=== PATIENT | female | born 1960 | race Caucasian/White ===

== ENCOUNTER → 2017-10-15 10:49 | Outpatient (CLI) | payer OTHER, SELFPAY ==
--- NOTE | 2017-10-15 | DI.MRI.S_ITS ---
PROCEDURE: MR ANKLE LT WO/W CON INDICATIONS: PAIN IN LEFT ANKLE TECHNIQUE: Noncontrast sagittal T1 spin echo and T2 fast spin echo with fat saturation, axial proton density fast spin echo and T2 fast spin echo with fat saturation, axial T1 spin echo with fat saturation, coronal T1 spin echo and T2 fast spin echo with fat saturation through the ankle/hindfoot. Post-contrast axial, coronal, and sagittal T1 spin echo with fat saturation through the ankle/hindfoot. COMPARISON: None. FINDINGS: Image quality: Excellent. Bones and joints: No suspicious osseous enhancement. No bone marrow contusions or fractures. No hindfoot coalitions. No osteochondral injuries of the talar dome. No pathologic joint effusions. Medial structures: The posterior tibialis, flexor digitorum longus, and flexor hallucis longus tendons are intact. Minimal fluid adjacent to the tibialis posterior and flexor digitorum longus tendons. The posterior tibial neurovascular bundle appears normal within the tarsal tunnel, without extrinsic mass effect. The deep layer (anterior and posterior tibiotalar ligaments) and superficial layer (tibionavicular, tibiospring, and tibiocalcaneal ligaments) of the deltoid ligament appear normal. The spring ligament components (superomedial calcaneonavicular, medioplantar oblique calcaneonavicular, and inferoplantar longitudinal ligaments) are intact. Lateral structures: The anterior talofibular ligament is not well-seen. This may be a chronic finding given the absence of adjacent marrow edema The calcaneofibular and posterior talofibular ligaments appear intact. More superiorly, the anterior and posterior tibiofibular ligaments appear intact, as is the intermalleolar ligament. The tibiofibular syndesmosis is normal in width at 2 mm or less. The peroneus longus and brevis tendons demonstrate diffuse longitudinal tears, tendinopathy and tenosynovitis. Adjacent bony peroneal tubercle and retrotrochlear prominence are normal in size. The sinus tarsi demonstrates normal fatty signal, without edema, fibrosis, or cyst formation. Visualized sinus tarsi components (cervical ligament, interosseous talocalcaneal ligament, roots of the inferior extensor retinaculum) appear normal. The calcaneonavicular and calcaneocuboid components of the bifurcate ligament appear intact. The dorsal calcaneocuboid ligament appears intact. Anterior structures: The tibialis anterior, extensor hallucis longus, and extensor digitorum longus tendons appear intact. The dorsal talonavicular ligament appears intact. Posterior and plantar structures: Achilles tendon is thickened approximately 5 cm above the calcaneal attachment although there is only minimal soft tissue edema. . Medial and lateral bands of the plantar fascia are of normal thickness. No abductor digiti quinti muscle atrophy to suggest Vo neuropathy. IMPRESSION: Severe diffuse peroneus brevis and longus longitudinal split tears, and associated tenosynovitis plus tendinopathy. Rupture of the anterior talofibular ligament although this could be a chronic finding. Please correlate clinically. Low-grade/chronic distal Achilles tendinopathy, centered approximately at 5 cm cephalad to the calcaneal attachment. Mild posterior tibialis and flexor digitorum longus tenosynovitis. Dictated by: Ernie Ruiz M.D. on 10/15/2017 at 15:55 Approved by: Ernie Ruiz M.D. on 10/15/2017 at 16:10
== END ==
PROVIDERS: PCP Physician Assistant; Visit Provider Physician Assistant
DX: S96.812A Strain of other specified muscles and tendons at ankle and foot level, left foot, initial encounter (principal); S93.492A Sprain of other ligament of left ankle, initial encounter; M65.872 Other synovitis and tenosynovitis, left ankle and foot; M25.572 Pain in left ankle and joints of left foot
CPT/HCPCS: 73723; A9579

== ENCOUNTER 2018-02-27 12:01 | Day surgery (SDC) | payer OTHER, SELFPAY ==
[2018-02-27] VITALS (8 sets, daily range): BP systolic 126–199; BP diastolic 69–90; PULSE 69–88; RESP 10–18; TEMP 36.2–37.3; O2SAT 90–97; BMI 34.8
[2018-02-27] MEDS: LACTATED RINGERS 1,000 ML 42 ML IV ×2 (13:11→15:43)
[2018-02-27] MEDS: MIDAZOLAM 2 MG/2 ML VIAL 1 MG IV ×2 (13:59→14:05)
[2018-02-27] MEDS: fentaNYL 100 MCG/2 ML INJ 50 MCG IV ×2 (14:00→14:05)
--- NOTE | 2018-02-27 14:07 | PM.PREOP ---
Pre-operative Note Interval Note Pre-op Check: Yes History & Physical Reviewed by Physician Changes: No
--- NOTE | 2018-02-27 14:08 | PM.OP.1 ---
Operative Date/Time/Diagnoses Date of procedure: 02/27/18 Time of procedure: 14:08 Pre-op diagnosis: Left lateral ankle instability and peroneal tendonitis Post-op diagnosis: same Procedure & Clinicians Procedure: Left lateral ankle stabilization (one ligament repair) with anchor system and peroneal tendon repair Same procedure as scheduled: Yes Indications: Painful chronic ankle instability with frequent sprains and suspected peroneal tendon tear. Conservative measures have failed to alleviate her pain and she wished to have surgical intervention this time. Surgeon: Ting Alvarez Click Yes if Unassisted: Yes Anesthesia Type: General and Peripheral nerve block Operative Notes Closure Type: primary Specimen(s): none sent Implants & Drains: Arthrex internal brace Tycron, Vicryl, nylon sutures Estimated Blood Loss (mL): 40 Blood products transfused: none Procedure in detail: After a lower extremity block was performed by Anesthesia in the preoperative holding area the patient was brought to the operating room. And transferred to the operating room table. After induction of general anesthesia, she was carefully positioned, well padded and appropriately aligned. The foot and ankle were prepped and draped in the usual aseptic manner. After a check of anesthesia an incision was made on the lateral aspect of the left ankle from posterior to the fibular malleolus in a hockey-stick fashion across the lateral anterior ankle. The incision was deepened through subcutaneous tissues being careful to identify and retract all vital neural and vascular structures. All bleeders were cauterized and ligated as necessary. The distal fibula was prepared and a very small remnant of the ATFL was noted. Further dissection was carried down to the talus and neck was noted and the lateral portion of the talus body as well was defined. After checking on C-arm and normal saline irrigation, a drill hole was made just distal and anterior to the articular surface of the talus laterally. Using the standard Arthrex internal brace technique, this was tapped and an anchor was placed securely. Next the peroneal tendons were observed just in the lateral gutter and shown to have significant changes with a synovitic sheath as well as each 1 having a few longitudinal tears in it. There were larger portions that suggested this was not the time to attempt sacrifice with tenodesis, so I used a curette and other sharp techniques of debridement and collected some of the fibers to allow for rib underlying and hopeful reestablishment of the linear nature of each of the tendons. This was done with Tycron. The sheath was repaired and attention was directed back to the fibula. A drill hole was placed after verifying on C-arm approximately 1.5 cm proximal to the distal tip and angulated appropriately. Unfortunately this on verification appeared to be just the exact length of the anchor and my concern was that this would not be long enough and the anchor could come out. So a different method was used in that I drilled from the most distal tip of the fibula slightly anterior to this tip, and the anchor was placed there. It was placed under tension and securely, having been threaded with the fiber tape from the prior anchor and following the line of the prior ATFL. It should be noted that there was less inversion on this security as well as after repair using the additional attachment of FiberWire in that anchor which a free needle was used to further secure the soft tissues to. Excess FiberWire and fiber tape were removed. The tourniquet was deflated and a prompt hyperemic response was seen to the foot and ankle. Vicryl was used to also reinforce the repair of the retinaculum to increase the lateral stability. Subcutaneous closure using Vicryl and skin closure using nylon. She was dressed with a lightly compressive sterile dressing and postoperative boot. Following the technique of the Arthrex SpeedBridge. Drill holes were placed proximally on the posterior aspect of the calcaneus medially and laterally. This was then tapped and each anchor was inserted. Once appropriately seated the FiberWire attached to the anchor was brought up through the Achilles tendon at the appropriate location. Next, distally on the calcaneus another set of 2 holes were drilled in the same manner and tapped. Following the speed bridge protocol, under appropriate tension threading each of the 2 sides of the more proximal anchors suture, this was then placed in each of the holes. Each of these 2 anchors were then seated appropriately and was under good tension. Excess fiber tape was trimmed. A free needle was used to take some of the included FiberWire suture on each side and reinforce the attachment. Care was taken to not make this a proud knot. 3-0 Vicryl was used to reinforce and repair the remainder of the Achilles tendon and range of motion was available and strong. The area was irrigated once more with normal sterile saline and the tourniquet was deflated. A prompt hyperemic response was seen to the foot and ankle. Tendon capsule was then repaired and subcutaneous closure was performed with Vicryl. Skin was closed with nylon and she was placed in a sterile lightly compressive dressing. She was then also placed in her postoperative boot. She was transferred to the PACU with vital signs stable and vascular status intact. Complications: none Condition: stable Disposition: PACU Plan for aftercare: Following a period of postoperative monitoring the patient be discharged home on written and oral postop instructions including keeping the dressing dry and intact, no ambulation to the foot times minimum 3 weeks, elevating the foot was seated home. DVT prevention techniques have been reviewed. She will start Lovenox tomorrow. Her 1st postoperative visit will be dressing change and at the 3rd week following surgery we will likely remove sutures and begin very limited weight-bearing with assistive device.
--- NOTE | 2018-02-27 14:24 | SUR.PREOP ---
Block start time [1359 ] . Monitoring initiated and maintained throughout procedure. Oxygen and medications given per anesthesiologist instructions. Patient remained stable throughout procedure, no adverse reactions noted. Block end time [1421 ].
[2018-02-27] MEDS: CEFAZOLIN 2 GM/100 ML FROZ.PIGGY IV (14:58)
--- NOTE | 2018-02-27 15:17 | SUR.OPER ---
Supine on padded OR bed, head on pillow, arms secured on padded arm boards at <90 degrees abduction, legs uncrossed, safety belt at thigh, tape over blanket over lower right leg and over blanket over thighs with gel bump under left thigh, left lower leg draped free.
--- NOTE | 2018-02-27 15:24 | PM.PROC.1 ---
Procedures Date/Time Date of procedure: 02/27/18 Time of procedure: 13:59 Nerve Block Time out performed: Yes Local anesthetic used: other (Ropivacaine 0.5% 17 ml and Lido 2% w epi 5 ml) Location of anesthetic used: left popliteal fossa Amount of anesthesia used (mL): 22 Nerve blocks: other (Left popliteal/Sciatic nerve Block for postop pain management) Procedure successful: Yes Patient tolerated procedure: well Complications: none Additional comments: Procedure: Left Popliteal/Sciatic Nerve block for postop pain relief. Consent obtained after explanation of procedure benefits and risks. Prone position with routine monitors. NC O2 in place. Ultrasound visualization plus nerve stimulator in place. IV sedation titrated: Versed 2mg and fentanyl 100mcg. Landmarks ID'd and nerve bundle vis with US. Lido 1% skin wheal with 25g needle. Nerve Stim needle 22g, 100mm used. Difficult to isolate nerve bundle beyond 4 cm above popliteal crease. Negative aspiration. Needle adjustment x4 for injection optimization. Procedure tolerated well.
[2018-02-27] MEDS: BUPIVACAINE 0.5% (PF) VIAL 30 ML INJ (15:26)
[2018-02-27] MEDS: BENZOCAINE/MENTHOL 1 LOZ PKT 1 EACH PO (17:41)
--- NOTE | 2018-02-27 17:45 | SUR.PHASEI ---
Dr. Alvarez notified pt c/o sore throat. vvo for cepacol lozenge. Lozenge provided.
== END 2018-02-27 18:23 | disposition home or self-care (01) ==
PROVIDERS: PCP Physician Assistant; Visit Provider Podiatrist
PROC: (CPT 27695; principal; 2018-02-27 12:15)
DX: M25.372 Other instability, left ankle (principal); M76.72 Peroneal tendinitis, left leg; G89.18 Other acute postprocedural pain; D68.51 Activated protein C resistance; M79.7 Fibromyalgia; Z86.718 Personal history of other venous thrombosis and embolism; E11.9 Type 2 diabetes mellitus without complications; D64.9 Anemia, unspecified
CPT/HCPCS: 27695; 27675; 64445; 64450; J0690; J1100; J2250; J2405; J2704; J2795; J3010

== ENCOUNTER → 2018-08-07 14:08 | Outpatient (CLI) | payer OTHER, SELFPAY ==
--- NOTE | 2018-08-07 | DI.MRI.S_ITS ---
PROCEDURE: MR LUMBAR SPINE WO CON INDICATIONS: LOW BACK PAIN. BILATERAL HIP AND LEG PAIN TECHNIQUE: Noncontrast sagittal T1 spin echo and T2 fast echo, sagittal STIR, axial T1 and T2 fast spin echo through the lumbar spine. In cases with scoliosis, additional coronal T2 fast spin echo may be performed. COMPARISON: [facility], , L-SPINE WITHOUT CONTRAST, 01/13/2012, 17:18. FINDINGS: Image quality: Excellent. Alignment and Curvature: Minimal grade 1 anterolisthesis of L3 on L4, and L4 on L5 as before. Bone Marrow: No acute compression fracture seen. Multilevel degenerative endplate sclerosis and spurring. Diffuse facet arthropathy. Spinal Cord: Conus medullaris terminates at the L2-L3 level. Visualized cord demonstrates normal signal and size. Paraspinous Soft Tissues: T2 hyperintense focus, possibly cyst, within the posterior segment of the liver, technically indeterminate measuring 9 mm L1-L2: Bilateral facet disease. Minimal central canal narrowing. Lateral recesses appear grossly patent. No foraminal stenosis L2-L3: Broad-based posterior disc bulge and bilateral facet arthropathy. Dorsal epidural lipomatosis. Mild central canal narrowing. Lateral recesses appear patent. No foraminal stenosis. No interval change L3-L4: Broad-based posterior disc bulge and bilateral facet arthropathy. Moderate central canal narrowing. There is also mild partial effacement of both lateral recesses, with symmetric appearance. No foraminal stenosis. No interval change L4-L5: Broad-based posterior disc bulge and bilateral facet disease. Mild central canal narrowing. Lateral recesses appear grossly patent. No foraminal stenosis. L5-S1: Broad-based posterior disc bulge and bilateral facet arthropathy. No central canal stenosis. Mild partial effacement of both lateral recesses although symmetric appearance. Mild right foraminal narrowing. Moderate left foraminal stenosis. No definite interval change IMPRESSION: Overall, stable examination since 01/13/12. Moderate L3-L4 canal narrowing which appears unchanged. Moderate left L5-S1 foraminal stenosis also grossly unchanged. Dictated by: Ernie Ruiz M.D. on 08/07/2018 at 17:03 Approved by: Ernie Ruiz M.D. on 08/07/2018 at 17:13
== END ==
PROVIDERS: PCP Physician Assistant; Visit Provider Physician Assistant
DX: M48.061 Spinal stenosis, lumbar region without neurogenic claudication (principal); M48.07 Spinal stenosis, lumbosacral region; M25.552 Pain in left hip; M25.551 Pain in right hip; M79.605 Pain in left leg; M79.604 Pain in right leg; M47.816 Spondylosis without myelopathy or radiculopathy, lumbar region; M47.817 Spondylosis without myelopathy or radiculopathy, lumbosacral region; M51.26 Other intervertebral disc displacement, lumbar region; M51.27 Other intervertebral disc displacement, lumbosacral region
CPT/HCPCS: 72148

== ENCOUNTER → 2019-05-14 13:13 | Outpatient (CLI) | payer OTHER, SELFPAY ==
--- NOTE | 2019-05-14 | DI.RAD.S_ITS ---
PROCEDURE: XR SHOULDER RT MIN 2V INDICATIONS: SHOULDER PAIN TECHNIQUE: 3 views of the shoulder were acquired. COMPARISON: None. FINDINGS: Bones: No fractures or dislocations. No suspicious bony lesions. Visualized ribs appear intact. Severe AC joint degeneration. There is also glenohumeral degenerative joint disease, with large bulky osteophyte formation at the inferior glenohumeral joint Soft tissues: No suspicious soft tissue calcifications. IMPRESSION: Right shoulder joint degeneration, with associated large bulky osteophyte formation at the inferior glenohumeral joint Dictated by: Ernie Ruiz M.D. on 05/14/2019 at 14:45 Approved by: Ernie Ruiz M.D. on 05/14/2019 at 14:51
--- NOTE | 2019-05-14 | DI.RAD.S_ITS ---
PROCEDURE: XR SHOULDER LT MIN 2V INDICATIONS: SHOULDER PAIN TECHNIQUE: 3 views of the shoulder were acquired. COMPARISON: [facility], CR, XR SHOULDER RT MIN 2V, 05/14/2019, 14:04. FINDINGS: Bones: No fractures or dislocations. No suspicious bony lesions. Visualized ribs appear intact. Severe AC joint degeneration. There is also glenohumeral degenerative joint disease. Degenerative cystic change seen at the posterior aspect of the greater tuberosity. Soft tissues: No suspicious soft tissue calcifications. IMPRESSION: Left shoulder joint degeneration as above. Dictated by: Ernie Ruiz M.D. on 05/14/2019 at 14:53 Approved by: Ernie Ruiz M.D. on 05/14/2019 at 14:55
--- NOTE | 2019-05-14 | DI.RAD.S_ITS ---
PROCEDURE: XR CERVICAL SPINE 2V OR 3V INDICATIONS: NECK PAIN TECHNIQUE: 3 view(s) of the cervical spine were acquired. COMPARISON: None. FINDINGS: Bones: No fractures or dislocations to the C7 level. The lateral masses of C1 appear intact on the odontoid view. No suspicious bony lesions. Straightening of the normal lordotic curvature. Multilevel degenerative endplate sclerosis and spurring. Diffuse facet arthropathy. Severe narrowing of the C6-C7 disc space. Trace anterolisthesis of C5 on C6. Mild narrowing of the remaining cervical disc spaces Soft tissues: No prevertebral soft tissue swelling. IMPRESSION: Multilevel cervical spondylosis and diffuse facet arthropathy most pronounced at C6-C7. Straightening of the normal lordotic curvature. Trace anterolisthesis of C5 on C6 Dictated by: Ernie Ruiz M.D. on 05/14/2019 at 16:39 Approved by: Ernie Ruiz M.D. on 05/14/2019 at 16:40
== END ==
PROVIDERS: PCP Physician Assistant; Referring Provider Physician Assistant; Visit Provider Physician Assistant
DX: M25.511 Pain in right shoulder (principal); M25.512 Pain in left shoulder; M54.2 Cervicalgia; M19.011 Primary osteoarthritis, right shoulder; M19.012 Primary osteoarthritis, left shoulder; M47.812 Spondylosis without myelopathy or radiculopathy, cervical region
CPT/HCPCS: 72040; 73030

== ENCOUNTER → 2020-03-31 15:36 | Outpatient (CLI) | payer OTHER, SELFPAY ==
[2020-03-31 16:19] LABS: Hemoglobin A1C% w Est Avg Glu 9.7 % (4.0-6.0)
[2020-03-31 16:26] LABS: Alanine Aminotransferase 37 IU/L (<35); Albumin 4.5 g/dL (3.5-5.0); Albumin Globulin Ratio 1.3 (1.0-2.8); Alkaline Phosphatase 93 U/L (38-126); Aspartate Aminotransferase 38 IU/L (14-36); BUN Creatinine Ratio 22.8 (6-22); Bilirubin Total 0.5 mg/dL (0.2-1.3); Blood Urea Nitrogen 13 mg/dL (7-17); Calcium 9.2 mg/dL (8.4-10.2); Carbon Dioxide 33 mmol/L (22-32); Chloride 101 mmol/L (98-107); Cholesterol 216 mg/dL (140-199); Estimated Glomerular Filt Rate > 60.0 mL/min (>60); Globulin 3.5 g/dL (1.7-4.1); Glucose 172 mg/dL (80-110); HDL Cholesterol 52 mg/dL (40-60); HEMOLYSIS < 15 (0-50); LDL Cholesterol Calculated 110 mg/dL (<100); Potassium 3.6 mmol/L (3.4-5.1); Sodium 137 mmol/L (137-145); Triglycerides 269 mg/dL (35-150)
[2020-03-31 17:04] LABS: Creatinine Urine Random 86.3 mg/dL
[2020-03-31 17:09] LABS: Microalbumi Creatinin Ratio Ur 8.1 ug/mg CR (<30); Microalbumin Urine Random 0.7 mg/dL (0-1.6)
== END ==
PROVIDERS: PCP Family Medicine; Referring Provider Family Medicine; Visit Provider Family Medicine
DX: E78.2 Mixed hyperlipidemia (principal); E11.9 Type 2 diabetes mellitus without complications
CPT/HCPCS: 36415; 80053; 80061; 82043; 82570; 83036

== ENCOUNTER → 2020-04-21 13:22 | Outpatient (CLI) | payer OTHER, SELFPAY ==
--- NOTE | 2020-04-21 | DI.MRI.S_ITS ---
PROCEDURE: MR ANKLE LT WO/W CON INDICATIONS: Other instability, left ankle TECHNIQUE: Noncontrast sagittal T1 spin echo and T2 fast spin echo with fat saturation, axial proton density fast spin echo and T2 fast spin echo with fat saturation, axial T1 spin echo with fat saturation, coronal T1 spin echo and T2 fast spin echo with fat saturation through the ankle/hindfoot. Post-contrast axial, coronal, and sagittal T1 spin echo with fat saturation through the ankle/hindfoot. COMPARISON: [facility], , MR ANKLE LT WO/W CON, 10/15/2017, 11:05. FINDINGS: Image quality: There is magnetic susceptibility artifact in the lateral malleolus related to postsurgical changes limiting evaluation. Bones and joints: No definite suspicious osseous enhancement. No bone marrow contusions or fractures. There is magnetic susceptibility artifact within the lateral malleolus consistent with sequelae of postsurgical change. No hindfoot coalitions. No osteochondral injuries of the talar dome. No pathologic joint effusions. Medial structures: The posterior tibialis, flexor digitorum longus, and flexor hallucis longus tendons are intact. The posterior tibial neurovascular bundle appears normal within the tarsal tunnel, without extrinsic mass effect. The deltoid and spring ligaments appear intact. Lateral structures: Magnetic susceptibility artifact is demonstrated in the lateral malleolus consistent with prior repair of the anterior talofibular ligament which appears thickened but grossly intact. The calcaneofibular ligament appears thickened and intermediate signal, with evaluation limited by magnetic susceptibility artifact proximally. This also appears grossly intact. The posterior talofibular ligament appears intact. More superiorly, the anterior and posterior tibiofibular ligaments appear intact, as is the intermalleolar ligament. The tibiofibular syndesmosis is normal in width at 2 mm or less. The peroneus longus and brevis tendons demonstrate tendinopathy proximally with a mild longitudinal split tear of the peroneus longus distally. Adjacent bony peroneal tubercle and retrotrochlear prominence are normal in size. The sinus tarsi demonstrates preserved fatty signal. The calcaneonavicular and calcaneocuboid components of the bifurcate ligament appear intact. The dorsal calcaneocuboid ligament appears intact. There is a cutaneous marker laterally in the midfoot in the area of palpable abnormality. This overlies the base of the 5th metatarsal. No subjacent mass, fluid collection, or abnormal enhancement identified. Anterior structures: The tibialis anterior, extensor hallucis longus, and extensor digitorum longus tendons appear intact. The dorsal talonavicular ligament appears intact. Posterior and plantar structures: There is moderate tendinosis of the Achilles tendon redemonstrated without evidence of rupture. Medial and lateral bands of the plantar fascia are of normal thickness. No abductor digiti quinti muscle atrophy to suggest Vo neuropathy. IMPRESSION: 1. No discrete mass, fluid collection, or abnormal enhancement demonstrated in the area of palpable abnormality in the lateral midfoot. The subjacent base of the 5th metatarsal demonstrates normal signal. 2. Postsurgical changes consistent with prior surgical repair of the ATFL which appears thickened but grossly intact. The calcaneofibular ligament is not well visualized proximally but also appears thickened and grossly intact. 3. Moderate tendinosis of the Achilles tendon without evidence of rupture. Dictated by: Angel Greenberg M.D. on 04/21/2020 at 17:07 Approved by: Angel Greenberg M.D. on 04/21/2020 at 17:38
== END ==
PROVIDERS: PCP Family Medicine; Referring Provider Family Medicine; Visit Provider Family Medicine
DX: M25.372 Other instability, left ankle (principal)
CPT/HCPCS: 73723; A9579

== ENCOUNTER → 2021-02-06 13:11 | Outpatient (CLI) | payer OTHER, SELFPAY ==
--- NOTE | 2021-02-06 | DI.RAD.S_ITS ---
PROCEDURE: XR HIP W PEL IF DONE RT 2V INDICATIONS: Pain in right hip TECHNIQUE: AP pelvis with lateral view(s) of the right hip(s). COMPARISON: None. FINDINGS: Bones: No fractures or dislocations. Pelvic ring appears intact. No suspicious bony lesions. Minimal to mild bilateral degenerative hip joint space narrowing. Minimal periarticular osteophytes are present. No erosions. Soft tissues: The visualized bowel gas pattern is normal. No suspicious soft tissue calcifications. IMPRESSION: Early arthritic change within the hip joints bilaterally. Dictated by: Demetra Medina M.D. on 02/06/2021 at 16:47 Approved by: Demetra Medina M.D. on 02/06/2021 at 16:47
[2021-02-06 14:38] LABS: Hemoglobin A1C% w Est Avg Glu 8.8 % (4.0-6.0)
== END ==
PROVIDERS: PCP Family Medicine; Referring Provider Family Medicine; Visit Provider Family Medicine
DX: M25.551 Pain in right hip (principal); E11.9 Type 2 diabetes mellitus without complications
CPT/HCPCS: 36415; 73502; 83036

== ENCOUNTER → 2021-06-26 10:55 | Outpatient (CLI) | payer OTHER, SELFPAY ==
[2021-06-26 12:25] LABS: Alanine Aminotransferase 34 IU/L (<35); Albumin 4.4 g/dL (3.5-5.0); Albumin Globulin Ratio 1.4 (1.0-2.8); Alkaline Phosphatase 76 U/L (38-126); Aspartate Aminotransferase 37 IU/L (14-36); Bilirubin Total 0.6 mg/dL (0.2-1.3); Blood Urea Nitrogen 12 mg/dL (7-17); Calcium 9.2 mg/dL (8.4-10.2); Carbon Dioxide 30 mmol/L (22-32); Chloride 100 mmol/L (98-107); Cholesterol 210 mg/dL (140-199); Estimated Glomerular Filt Rate > 60 mL/min (>60); Globulin 3.1 g/dL (1.7-4.1); Glucose 235 mg/dL (80-110); HDL Cholesterol 53 mg/dL (40-60); HEMOLYSIS < 15 (0-50); LDL Cholesterol Calculated 118 mg/dL (<100); Potassium 3.9 mmol/L (3.4-5.1); Sodium 138 mmol/L (137-145); Total Protein 7.5 g/dL (6.3-8.2); Triglycerides 194 mg/dL (35-150)
== END ==
PROVIDERS: PCP Family Medicine; Referring Provider Family Medicine; Visit Provider Family Medicine
DX: E78.2 Mixed hyperlipidemia (principal); I10 Essential (primary) hypertension
CPT/HCPCS: 36415; 80053; 80061

== ENCOUNTER → 2021-08-20 11:55 | Outpatient (CLI) | payer OTHER, SELFPAY ==
[2021-08-20 13:12] LABS: Hemoglobin A1C% w Est Avg Glu 11.9 % (4.0-6.0)
== END ==
PROVIDERS: PCP Family Medicine; Referring Provider Family Medicine; Visit Provider Family Medicine
DX: E78.2 Mixed hyperlipidemia (principal)
CPT/HCPCS: 36415; 83036

== ENCOUNTER → 2022-03-27 15:49 | Outpatient (CLI) | payer OTHER, SELFPAY ==
--- NOTE | 2022-03-27 | DI.RAD.S_ITS ---
PROCEDURE: XR KNEE LT 3V INDICATIONS: LEFT KNEE PAIN TECHNIQUE: Three views of the knee were acquired. COMPARISON: [facility], , KNEE 1-2 VIEWS LEFT, 06/03/2012, 11:55. FINDINGS: Bones: Postsurgical changes are seen from medial unicompartmental knee arthroplasty. Hardware components are in stable positions. No acute osseous fracture is seen. Degenerative changes are seen in the lateral and anterior compartments . Soft tissues: No joint effusion. No suspicious soft tissue calcifications. IMPRESSION: Stable postsurgical changes from medial unicompartmental arthroplasty. No acute osseous abnormality. If clinical suspicion and/or symptoms persist, additional imaging with repeat plain films, or advanced imaging (e.g. CT, MRI) may be helpful for further assessment. Approved by: James Ramirez M.D. on 03/27/2022 at 17:08
== END ==
PROVIDERS: PCP Family Medicine; Referring Provider Nurse Practitioner Family; Visit Provider Nurse Practitioner Family
DX: M25.562 Pain in left knee (principal); Z96.652 Presence of left artificial knee joint
CPT/HCPCS: 73562

== ENCOUNTER → 2022-11-22 14:51 | Outpatient (CLI) | payer OTHER, SELFPAY ==
--- NOTE | 2022-11-22 | DI.RAD.S_ITS ---
PROCEDURE: XR HIP W PEL IF DONE RT 2V INDICATIONS: Pain in right hip TECHNIQUE: AP pelvis with lateral view of the right hip. COMPARISON: [facility], , XR HIP W PEL IF DONE RT 2V, 02/06/2021, 13:18. FINDINGS: Bones: No acute fractures or dislocations. Pelvic ring appears intact. No suspicious bony lesions. Mild symmetric degenerative changes are seen in the bilateral hips and pubic symphysis. Soft tissues: The visualized bowel gas pattern is normal. No suspicious soft tissue calcifications. IMPRESSION: Mild bilateral hip osteoarthrosis, similar when compared to the exam from 02/06/2021. Approved by: James Ramirez M.D. on 11/22/2022 at 17:32
== END ==
PROVIDERS: PCP Nurse Practitioner Family; Referring Provider Nurse Practitioner Family; Visit Provider Nurse Practitioner Family
DX: M16.0 Bilateral primary osteoarthritis of hip (principal); M25.551 Pain in right hip
CPT/HCPCS: 73502

== ENCOUNTER → 2023-11-26 13:40 | Outpatient (CLI) | payer OTHER, SELFPAY ==
[2023-11-26 14:38] LABS: Hemoglobin A1C% w Est Avg Glu 5.9 % (4.0-6.0)
== END ==
PROVIDERS: PCP Nurse Practitioner Family; Referring Provider Nurse Practitioner Family; Visit Provider Nurse Practitioner Family
DX: E11.9 Type 2 diabetes mellitus without complications (principal)
CPT/HCPCS: 36415; 83036

== ENCOUNTER → 2024-01-26 16:00 | Outpatient (CLI) | payer OTHER, SELFPAY ==
--- NOTE | 2024-01-26 16:02 | DI.MRI.S_ITS ---
PROCEDURE: MR HEAD/BRAIN WO CON INDICATIONS: annual screening/headache TECHNIQUE: Noncontrast axial T1 spin echo, axial T2 fast spin echo, sagittal and axial FLAIR, coronal T2 fast spin echo, axial gradient echo, axial diffusion and ADC through the brain. COMPARISON: None. FINDINGS: CSF Spaces: Basal cisterns are patent. No extra-axial fluid collections. Ventricles are normal in size and shape. Brain: No intracranial masses or hemorrhage. Grier/white matter interface is normal. Brainstem appears normal. Diffusion-weighted sequence is unremarkable without evidence of acute infarct. Normal intravascular flow voids are present. Multifocal matter hyperintensities consistent with ischemic change noted in the deep and periventricular white matter as well as the jose armando Skull and face: Calvarium has normal marrow signal. Orbits appear normal. Bilateral intraocular lens replacements noted. Sinuses: Sinuses and mastoids are clear. IMPRESSION: Nonspecific matter hyperintensities without significant atrophy. Differential would include chronic ischemic change, migrainous vasculopathy, and vasculitis No acute infarct, hemorrhage or mass lesion Approved by: Nain Simpson M.D. on 01/27/2024 at 9:08
--- NOTE | 2024-01-26 16:04 | DI.RAD.S_ITS ---
PROCEDURE: XR CERVICAL SPINE 2V OR 3V INDICATIONS: CHRONIC NECK PAIN TECHNIQUE: 3 view(s) of the cervical spine were acquired. COMPARISON: [facility], CR, XR CERVICAL SPINE 2V OR 3V, 05/14/2019, 14:11. FINDINGS: Please note that the C7 vertebral body is obscured by overlying soft tissue. Otherwise, 7 cervical vertebrae are identified. The vertebral body heights are preserved. The C1 and C2 lateral masses are in symmetric alignment with the dens on the odontoid view. Grade 1 anterolisthesis of C5 on C6 and C7 on T1. Otherwise, the cervical lordosis is preserved. Multilevel moderate facet and uncinate arthropathy is present, most conspicuous at C5-C6. Severe intervertebral disc height loss at C6-C7. The airway and epiglottic soft tissue contours are preserved. No prevertebral soft tissue edema. IMPRESSION: Multilevel cervical osteoarthrosis, similar to 05/14/2019. Dictated by: Geovanny Bonner M.D. on 01/26/2024 at 17:18 Approved by: Geovanny Bonner M.D. on 01/26/2024 at 17:20
== END ==
PROVIDERS: PCP Nurse Practitioner Family; Referring Provider Nurse Practitioner Family; Visit Provider Nurse Practitioner Family
DX: M54.2 Cervicalgia (principal); M47.812 Spondylosis without myelopathy or radiculopathy, cervical region; R51.9 Headache, unspecified
CPT/HCPCS: 70551; 72040

== ENCOUNTER → 2024-02-19 14:08 | Outpatient (CLI) | payer OTHER, SELFPAY ==
--- NOTE | 2024-02-19 | DI.MG.S_ITS ---
BILATERAL DIGITAL SCREENING MAMMOGRAM 3D/2D WITH CAD: 02/19/2024 CLINICAL: Routine screening. Comparison is made to exam dated: 12/26/2015 mammogram - [facility]. There are scattered areas of fibroglandular density (category b / 25%-50% glandular tissue). Current study was also evaluated with a Computer Aided Detection (CAD) system. No significant masses, calcifications, or other findings are seen in either breast. There has been no significant interval change. IMPRESSION: NEGATIVE There is no mammographic evidence of malignancy. A 1 year screening mammogram is recommended. Based on the Tyrer Cuzick model (a risk assessment model) the patient's lifetime risk is 7.7% and her 10 year risk is 3.7%. According to the ACR, ACS, and NCCN guidelines, an annual breast MRI exam along with mammogram is recommended if the patient's lifetime risk is 20% or greater. This exam was interpreted at Station ID: [id number]. NOTE: For mammograms, a report in lay terms will be sent to the patient. Approximately 15% of breast malignancies will not be visualized mammographically. In the management of a palpable breast mass, a negative mammogram must not discourage biopsy of a clinically suspicious lesion. Electronically Signed By: Umm morejon/[email or web address]:02/19/2024 15:43:48 letter sent: Normal Exam ACR BI-RADS Category 1: Negative
== END ==
PROVIDERS: PCP Nurse Practitioner Family; Referring Provider Nurse Practitioner Family; Visit Provider Nurse Practitioner Family
DX: Z12.31 Encounter for screening mammogram for malignant neoplasm of breast (principal)
CPT/HCPCS: 77063; 77067

== ENCOUNTER → 2024-08-23 14:07 | Outpatient (CLI) | payer OTHER, SELFPAY ==
--- NOTE | 2024-08-23 14:08 | DI.RAD.S_ITS ---
PROCEDURE: FL ARTHROGRAM SHOULDER RT INDICATIONS: shoulder pain, labral tear COMPARISON: [facility], MR, MR SHOULDER RT W CON, 08/23/2024, 15:09. TECHNIQUE: The indications, alternatives, benefits, risks, and complications of the procedure were explained to the patient. Written informed consent was obtained and placed in the chart. The shoulder was examined fluoroscopically and a site for needle placement chosen for entry into the glenohumeral joint from an anterior approach. The skin was prepped and draped in a sterile fashion, and 1% lidocaine infiltrated from skin down to joint capsule. A spinal needle was inserted into the glenohumeral joint, and a small amount of lidocaine injected to confirm intra-articular placement of the needle tip. Fluid flowed in easily. This was followed by approximately 12 mL dilute solution of a gadolinium containing MR contrast agent. The needle was removed and a dressing was applied. The patient was given postprocedural instructions and sent to the MR suite for MR imaging. FINDINGS: A single fluoroscopic spot image demonstrates expected location of the needle. Iodine contrast not utilized due to prior allergy. IMPRESSION: Successful fluoroscopically guided administration of dilute Gadolinium solution into the shoulder joint for MR arthrogram. Dictated by: Rhys Gonzalez M.D. on 08/23/2024 at 16:42 Approved by: Rhys Gonzalez M.D. on 08/23/2024 at 16:42
--- NOTE | 2024-08-23 16:08 | DI.MRI.S_ITS ---
PROCEDURE: MR SHOULDER RT W CON INDICATIONS: shoulder pain, labral tear TECHNIQUE: After the administration of 12 mL of dilute intra-articular Gadolinium contrast, oblique coronal T1 and T2 spin echo with fat saturation, oblique sagittal T1 spin echo with and without fat saturation, oblique sagittal T2 fast spin echo with fat saturation, axial T1 spin echo with fat saturation through the shoulder. COMPARISON: [facility], CR, XR SHOULDER 2+ VIEWS RIGHT, 11/26/2023, 11:02. FINDINGS: Image quality: Excellent. Rotator cuff: In the supraspinatus, there is high-grade articular sided tear at the anterior footprint (8:7). There is full-thickness tear extending from the critical zone to the footprint of the posterior fiber (8:9 and 10:9). Multifocal full- thickness tear at the critical zone of the posterior supraspinatus (08:11). There is low grade, articular sided tear at the critical zone of the anterior infraspinatus, extending to interstitial tear at the footprint (08:12). Moderate tendinosis of the supraspinatus and infraspinatus. Small amount of fluid tracking along the myotendinous junction of the infraspinatus. The teres minor is unremarkable. Low-grade interstitial tear of the subscapularis. No muscle edema or fatty atrophy. Bones and bursae: Moderate degenerative changes of the acromioclavicular joint. Type 1 acromion. No os acromiale. Large amount of contrast extravasating into the subacromial/subdeltoid bursa. Mild subchondral cystic changes at the greater tuberosity, reactive. Mild subchondral marrow edema at the lesser tuberosity, reactive as well. No acute fracture. Severe degenerative change of the glenohumeral joint with large humeral head osteophytosis. Capsule and soft tissues: Tear of the anterior superior labrum. No paralabral cyst. Low-grade tear of the proximal extra-articular biceps tendon. Multiple loose body within the bicipital tendon sheath, measuring up to 9 mm. The intra-articular biceps tendon is unremarkable. IMPRESSION: 1. Moderate degenerative changes of the acromioclavicular joint. 2. Severe degenerative changes of the glenohumeral joint. 3. Multi focal high-grade and full-thickness tear of the supraspinatus. 4. Low-grade tear of the infraspinatus and the subscapularis. 5. Low-grade tear of the proximal extra-articular biceps tendon. Multiple loose body within the bicipital tendon sheath. Dictated by: Sherri Wang M.D. on 08/23/2024 at 16:44 Approved by: Sherri Wang M.D. on 08/23/2024 at 16:56
[2024-08-23] MEDS: LIDOCAINE 1% 20 ML INJ (16:14)
[2024-08-23] MEDS: SODIUM CHLORIDE 0.9 % 20 ML VIAL IV (16:14)
== END ==
LOC: RAD 14:08
PROVIDERS: PCP Nurse Practitioner Family; Referring Provider Orthopaedic Surgery; Visit Provider Orthopaedic Surgery
DX: M75.121 Complete rotator cuff tear or rupture of right shoulder, not specified as traumatic (principal); M19.011 Primary osteoarthritis, right shoulder; S46.211A Strain of muscle, fascia and tendon of other parts of biceps, right arm, initial encounter; S43.491A Other sprain of right shoulder joint, initial encounter
CPT/HCPCS: 23350; 73040; 73222; A9579